=== PATIENT | female | born 1995 | race Caucasian/White ===

== ENCOUNTER 2016-04-12 22:50 | Emergency (ER) | payer OTHER | END 2016-04-12 23:55 | disposition home or self-care (01) | DX: T18.5XXA Foreign body in anus and rectum, initial encounter (principal); X58.XXXA Exposure to other specified factors, initial encounter; Y93.89 Activity, other specified; Y92.013 Bedroom of single-family (private) house as the place of occurrence of the external cause ==

== ENCOUNTER 2019-03-10 18:43 | Emergency (ER) | payer OTHER ==
[2019-03-10] MEDS ORDERED: PROMETHAZINE INJ 25 MG in SODIUM CHLORIDE 0.9% 50 ML IV STA (19:16)
[2019-03-10] MEDS ORDERED: SODIUM CHLORIDE 0.9% 1,000 ML IV ONE (19:16)
[2019-03-10] MEDS ORDERED: diphenhydrAMINE INJ 50 MG/ML VIAL IVP STA (19:16)
[2019-03-10] MEDS ORDERED: KETOROLAC 30 MG/ML VIAL IVP STA (19:16)
--- NOTE | 2019-03-10 19:20 | ED Physician Documentation ---
PD HPI HEADACHE - Stated complaint Stated Complaint: MIGRAINE - Chief complaint Chief Complaint: Neuro - History obtained from History obtained from: Patient, Family - History of Present Illness Timing - onset: Today Timing - onset during: Rest Timing - duration: Hours (12) Timing - details: Other Pain level max: 9 Pain level now: 9 Location: Global Quality: Throbbing, Aching Associated symptoms: Nausea, Vomiting. No: Fever, Stiff neck, Weakness, Numbness, Syncope, Seizure, Eye pain, Vision changes Improved by: Rest Worsened by: Light, Noise Contributing factors: No: Anticoagulated, Possible carbon monoxide, Hypertension, Recent illness, Trauma - Additional information Additional information: Patient states that she awoke with a headache this morning. She states this is not usual for her. There is a strong family history of migraine headaches. She states that she has never been diagnosed. Took Tylenol without relief. No trauma. No fevers. Review of Systems Constitutional: denies: Fever, Chills Nose: denies: Rhinorrhea / runny nose, Congestion Cardiac: denies: Chest pain / pressure Respiratory: denies: Cough GI: reports: Nausea, Vomiting : reports: Other (Patient states no possibility of ). denies: Dysuria, Frequency, Hesitancy, Now EGA Skin: denies: Rash Musculoskeletal: denies: Neck pain, Back pain Neurologic: denies: Focal weakness, Numbness, Confused PD PAST MEDICAL HISTORY - Past Medical History Past Medical History: No - Past Surgical History Past Surgical History: No - Allergies Allergies/Adverse Reactions: Allergies Allergy/AdvReac Type Severity Reaction Status Date / Time No Known Drug Allergies Allergy Verified 03/10/19 18:48 - Living Situation Living Situation: reports: With family Living Arrangement: reports: At home - Social History Does the pt smoke?: No Does the pt drink ETOH?: No Does the pt have substance abuse?: No - Family History Family history: reports: Non contributory PD ED PE NORMAL - Vitals Vital signs reviewed: Yes - General General: Alert and oriented X 3, Well developed/nourished, Other (Appears uncomfortable) - HEENT HEENT: Atraumatic, PERRL, Ears normal, Moist mucous membranes, Pharynx benign - Neck Neck: Supple, no meningeal sign, No bony TTP - Cardiac Cardiac: RRR, Strong equal pulses - Respiratory Respiratory: No respiratory distress, Clear bilaterally - Abdomen Abdomen: Soft, Non tender, Non distended - Back Back: No spinal TTP - Derm Derm: Warm and dry - Extremities Extremities: No edema, No calf tenderness / cord - Neuro Neuro: Alert and oriented X 3, welding supervisor 2-12 intact, No motor deficit, No sensory deficit, Normal speech Eye Opening: Spontaneous Motor: Obeys Commands Verbal: Oriented GCS Score: 15 - Psych Psych: Normal mood, Normal affect Results - Vitals Vitals: Vital Signs - 24 hr 03/10/19 03/10/19 18:48 20:57 Temperature 36.9 C 36.4 C L Heart Rate 114 H 88 Respiratory 16 16 Rate Blood Pressure 121/67 95/74 O2 Saturation 98 99 Oxygen O2 Source Room air - Rads (name of study) Head CT Radiology: Prelim report reviewed, EMP read contemporaneously, See rad report (No acute abnormality) PD MEDICAL DECISION MAKING - ED course Complexity details: reviewed results, re-evaluated patient, considered differential, d/w patient, d/w family ED course: 24-year-old female presents the emergency department with a new headache. No acute findings on head CT. Declines lumbar puncture. Headache resolved with normal migraine cocktail. Tolerating p.o. without difficulty. Afebrile. No evidence of subarachnoid hemorrhage, meningitis, encephalitis, tumor. Patient counseled regarding signs and symptoms for which I believe and urgent re- evaluation would be necessary. Patient with good understanding of and agreement to plan and is comfortable going home at this time This document was made in part using voice recognition software. While efforts are made to proofread this document, sound alike and grammatical errors may occur. Departure - Departure Disposition: 01 Home, Self Care Clinical Impression: Headache Qualifiers: Headache type: unspecified Headache chronicity pattern: acute headache Intractability: not intractable Qualified Code(s): R51 - Headache Condition: Good Instructions: ED Cephalgia Unspecified Follow-Up: your,doctor in 1 week [Other] Comments: Return if you worsen. Follow-up with your doctor for further care. Your head CT does not show any acute abnormalities tonight. Discharge Date/Time: 03/10/19 21:11
--- NOTE | 2019-03-10 20:34 | CT Report ---
Reason: headache Procedure Date: 03/10/2019 Accession Number: [id number] / [id number] Procedure: CT - HEAD WO CPT Code: Final Report FULL RESULT: EXAM: CT HEAD EXAM DATE: 03/10/2019 08:06 PM. CLINICAL HISTORY: Headache. COMPARISON: None. TECHNIQUE: Multiaxial CT images were obtained from the foramen magnum to the vertex. Reformats: Sagittal and coronal. IV contrast: None. In accordance with CT protocol optimization, one or more of the following dose reduction techniques were utilized for this exam: automated exposure control, adjustment of mA and/or KV based on patient size, or use of iterative reconstructive technique. FINDINGS: Parenchyma: No intraparenchymal hemorrhage. No evidence of mass, midline shift, or CT findings of infarction. Johansen-white differentiation is distinct. Extraaxial Spaces: Normal for age. No subdural or epidural collections identified. Ventricles: Normal in size and position. Sinuses and Orbits: Imaged paranasal sinuses, orbits, and mastoids show no significant abnormality. Bones: No evidence of fracture or calvarial defect. Other: None. IMPRESSION: Normal head CT. RADIA
[2019-03-10 20:58] VITALS: BP 95/74
== END 2019-03-10 21:11 | disposition home or self-care (01) ==
LOC: ED 18:43
DX: R51 Headache (principal); R11.2 Nausea with vomiting, unspecified; Z82.0 Family history of epilepsy and other diseases of the nervous system
CPT/HCPCS: 70450; 96361; 96365; 96375; 99282; 99284; J1200; J7040

== ENCOUNTER 2021-02-25 16:10 | Emergency (ER) | payer OTHER ==
[2021-02-25] MEDS ORDERED: DROPERIDOL 5 MG/2 ML VIAL IM STA (16:50)
[2021-02-25] MEDS ORDERED: diphenhydrAMINE INJ 50 MG/ML VIAL IM STA (16:50)
[2021-02-25] MEDS ORDERED: KETOROLAC 60 MG/2 ML VIAL IM STA (16:50)
[2021-02-25] MEDS ORDERED: PSEUDOEPHEDRINE 30 MG TABLET PO STA (16:50)
--- NOTE | 2021-02-25 16:52 | ED Physician Documentation ---
History of Present Illness - Stated complaint Stated Complaint: HEAD PX/NAUSEA - Chief complaint Chief Complaint: Neuro - History obtained from History obtained from: Patient - History of Present Illness Pain level max: 8 Pain level now: 8 - Additonal information Additional information: Patient is a 26-year-old female who presents to the emergency department stating she started to develop a headache yesterday. Is gradually worsened today. She has a history of migraine headaches and this feels similar. Worse with light and sound, better with rest and a dark room. Took Tylenol without relief. She also states that she has had nasal congestion and coughing for the past week. No fevers. No chills. Has not been taking anything for this. Denies any neck pain or trauma. Denies any possibility of . Review of Systems Ten Systems: 10 systems reviewed and negative Constitutional: denies: Fever, Chills Nose: reports: Rhinorrhea / runny nose, Congestion, Sinus pressure / pain Throat: denies: Sore throat Cardiac: denies: Chest pain / pressure Respiratory: reports: Cough (dry) GI: denies: Abdominal Pain, Nausea, Vomiting, Diarrhea Skin: denies: Rash Musculoskeletal: denies: Neck pain, Back pain Neurologic: reports: Headache (gradual onset, holocranial). denies: Generalized weakness, Focal weakness, Seizure, Confused, Altered mental status PD PAST MEDICAL HISTORY - Past Medical History Past Medical History: Yes Neuro: Migraines - Past Surgical History Past Surgical History: No - Present Medications Home Medications: Ambulatory Orders Medication Instructions Recorded Confirmed Benzonatate [Tessalon] 200 mg PO TID PRN #30 cap 02/25/21 Cetirizine HCl/Pseudoephedrine 1 each PO BID PRN #30 ea 02/25/21 [Zyrtec-D Tablet] - Allergies Allergies/Adverse Reactions: Allergies Allergy/AdvReac Type Severity Reaction Status Date / Time No Known Drug Allergies Allergy Verified 02/25/21 16:18 - Social History Does the pt smoke?: No Smoking Status: Never smoker Does the pt drink ETOH?: No Does the pt have substance abuse?: No - Immunizations Immunizations are current?: Yes - POLST Patient has POLST: No PD ED PE NORMAL - Vitals Vital signs reviewed: Yes - General General: Alert and oriented X 3, No acute distress, Well developed/nourished - HEENT HEENT: Atraumatic, PERRL, Ears normal, Moist mucous membranes, Pharynx benign, Other (Mild tenderness over the frontal sinuses.) - Neck Neck: Supple, no meningeal sign, No bony TTP, No adenopathy - Cardiac Cardiac: RRR, Strong equal pulses - Respiratory Respiratory: No respiratory distress, Clear bilaterally - Abdomen Abdomen: Soft, Non tender, Non distended - Derm Derm: Warm and dry - Extremities Extremities: No edema - Neuro Neuro: Alert and oriented X 3, renal social worker 2-12 intact, No motor deficit, No sensory deficit, Normal speech Eye Opening: Spontaneous Motor: Obeys Commands Verbal: Oriented GCS Score: 15 - Psych Psych: Normal mood, Normal affect Results - Vitals Vitals: Vital Signs - 24 hr 02/25/21 02/25/21 16:18 17:20 Temperature 37.1 C Heart Rate 99 87 Respiratory 16 18 Rate Blood Pressure 103/69 141/84 H O2 Saturation 96 97 Oxygen O2 Source Room air PD MEDICAL DECISION MAKING - ED course Complexity details: re-evaluated patient, considered differential, d/w patient ED course: 26-year-old female with what appears to be a viral upper respiratory infection complicated by a migraine headache. Given Toradol, droperidol, Benadryl and headache improved. Also given pseudoephedrine. Will place on decongestants for home and have her follow-up with her doctor for further care. No evidence of subarachnoid hemorrhage. No indication for imaging. Patient counseled regarding signs and symptoms for which I believe and urgent re-evaluation would be necessary. Patient with good understanding of and agreement to plan and is comfortable going home at this time This document was made in part using voice recognition software. While efforts are made to proofread this document, sound alike and grammatical errors may o ccur. Departure - Departure Disposition: 01 Home, Self Care Clinical Impression: Viral URI Migraine Qualifiers: Migraine type: unspecified Status migrainosus presence: without status migrainosus Intractability: not intractable Qualified Code(s): G43.909 - Migraine, unspecified, not intractable, without status migrainosus Condition: Good Instructions: ED Headache Migraine, ED Viral Syndrome Follow-Up: KISHOR REIS MD [Primary Care Provider] - As Needed Prescriptions: Benzonatate [Tessalon] 200 mg PO TID PRN #30 cap PRN Reason: Cough Cetirizine HCl/Pseudoephedrine [Zyrtec-D Tablet] 1 each PO BID PRN #30 ea PRN Reason: nasal congestion Comments: You can use the medications as prescribed to help with your coughing and nasal congestion. Please follow-up with your doctor as needed for further care. Return if you worsen. Your prescriptions were sent to [facility] in [place] You have a Covid test pending. You need to self quarantine until the result is done and negative. The results should be done in 24-48 hours. We will call with a positive result, the fastest way to get a negative result for confirmation though is to go to the hospital website at [email or web address], click on the my [email or web address] tab and sign up for the patient portal. If any of your friends and/or family need to be tested, they can call the hospital at [phone] for an appointment to have their Covid test.
[2021-02-25 17:58] VITALS: BP 104/76
== END 2021-02-25 18:11 | disposition home or self-care (01) ==
LOC: ED 16:10
DX: J06.9 Acute upper respiratory infection, unspecified (principal); G43.909 Migraine, unspecified, not intractable, without status migrainosus; Z20.822 Contact with and (suspected) exposure to COVID-19
CPT/HCPCS: 87635; 96372; 99283; 99284; A9270; J1200